=== PATIENT | male | born 1985 | race Caucasian/White ===

== ENCOUNTER 2021-05-31 09:05 | Emergency (ER) | payer OTHER ==
[~2021-05-31] VITALS: Ht 180.3 cm; Wt 114.8 kg
[~2021-05-31 09:05] MED LIST: KETO10TA2 PO; TAMS0.4C PO
== END 2021-05-31 14:07 | disposition home or self-care (01) ==
LOC: ER 09:05
DX: R10.31 Right lower quadrant pain (principal)

== ENCOUNTER 2021-07-04 00:07 | Inpatient (IN) | payer OTHER ==
[~2021-07-04] VITALS: Ht 180.3 cm; Wt 113.4 kg
== END 2021-07-08 17:30 | disposition home or self-care (01) | DRG 373 ==
LOC: ER 00:07 → SEC-K 16:06 → SURH 07-05 16:44
PROVIDERS: ADMIT Internal Medicine; ATTEND Internal Medicine
PROC: BW211ZZ Computerized Tomography (CT Scan) of Abdomen and Pelvis using Low Osmolar Contrast (ICD-10-PCS; principal; 2021-07-04)
DX: K35.890 Other acute appendicitis without perforation or gangrene (principal); N20.0 Calculus of kidney; Q63.2 Ectopic kidney; R10.31 Right lower quadrant pain; Z20.822 Contact with and (suspected) exposure to COVID-19; E66.8 Other obesity